=== PATIENT | male | born 1980 | race Hispanic/Latino ===

== ENCOUNTER 2018-04-04 19:57 | Emergency (ER) | payer SELFPAY ==
--- NOTE | 2018-04-04 21:37 | ER ---
Nurse's Notes [facility] Name: Ed Wei Age: 37 yrs Sex: Male : 1980 Arrival Date: 04/04/2018 Time: 20:00 Bed 12 Private MD: None, None Diagnosis: Tinea pedis;Cellulitis of left toe Presentation: 04/04 20:10 Presenting complaint: Patient states: that 3 days ago he noticed a wound at the base of fc his left third toe. Area is now swollen and painful. Transition of care: patient was not received from another setting of care. Onset of symptoms was April 01, 2018. Risk Assessment: Do you want to hurt yourself or someone else? Patient reports no desire to harm self or others. Initial Sepsis Screen: Does the patient meet any 2 criteria? No. Patient's initial sepsis screen is negative. Does the patient have a suspected source of infection? No. Patient's initial sepsis screen is negative. Care prior to arrival: Medication(s) given: Neosporin to wound. 20:10 Method Of Arrival: Ambulatory 20:10 Acuity: MIMI 4 Triage Assessment: 20:12 General: Appears uncomfortable, well groomed, Behavior is calm, cooperative, fc appropriate for age. Pain: Complains of pain in left foot Pain currently is 4 out of 10 on a pain scale. at worst was 8 out of 10 on a pain scale. Quality of pain is described as aching, throbbing, Pain began 2-3 days ago. Is continuous, Aggravated by increased activity, repositioning, weight bearing. EENT: No deficits noted. Neuro: Level of Consciousness is awake, alert, obeys commands, Oriented to person, place, time, situation. Cardiovascular: No deficits noted. Respiratory: No deficits noted. GI: No deficits noted. : No deficits noted. Derm: Skin is pink, warm \T\ dry. Reports wound at the base of left third tow. Musculoskeletal: Circulation, motion, and sensation intact. Capillary refill < 3 seconds, Range of motion: intact in all extremities. Historical: - Allergies: 20:12 No Known Allergies; fc - Home Meds: 20:12 None [Active]; fc - PMHx: 20:12 None; fc - PSHx: 20:12 None; fc - Immunization history:: Last tetanus immunization: unknown, Flu vaccine is not up to date. - Social history:: Smoking status: Patient/guardian denies using tobacco, Patient uses alcohol, occasionally. Patient/guardian denies using street drugs. - Ebola Screening: : Patient negative for fever greater than or equal to 101.5 degrees Fahrenheit, and additional compatible Ebola Virus Disease symptoms Patient denies exposure to infectious person Patient denies travel to an Ebola-affected area in the 21 days before illness onset. Screenin:14 Abuse screen: Denies threats or abuse. Nutritional screening: No deficits noted. fc Tuberculosis screening: No symptoms or risk factors identified. 20:34 Fall Risk None identified. bb Assessment: 20:34 General: Appears in no apparent distress. uncomfortable, Behavior is calm, cooperative. bb Pain: Complains of pain in left foot. Neuro: Level of Consciousness is awake, alert, obeys commands, Oriented to person, place, time, situation. Cardiovascular: No deficits noted. Respiratory: Airway is patent Respiratory effort is even, unlabored, Respiratory pattern is regular. GI: No deficits noted. No signs and/or symptoms were reported involving the gastrointestinal system. Derm: Wound noted left foot. Musculoskeletal: Circulation, motion, and sensation intact. Vital Signs: 20:13 BP 124 / 85; Pulse 71; Resp 18; Temp 98.3(O); Pulse Ox 100% on R/A; Weight 102.06 kg fc (R); Height 5 ft. 7 in. (170.18 cm) (R); Pain 4/10; 21:58 BP 134 / 72; Pulse 56; Resp 16 S; Temp 97.8(O); Pulse Ox 100% on R/A; bb 20:13 Body Mass Index 35.24 (102.06 kg, 170.18 cm) ED Course: 20:00 Patient arrived in ED. mr 20:01 None, None is Private Physician. mr 20:11 Triage completed. fc 20:13 Arm band placed on Patient placed in waiting room. fc 20:34 Myriam Quiros, CARLOS is Primary Nurse. bb 20:34 Patient has correct armband on for positive identification. Call light in reach. bb 21:01 [facility] snw 21:01 Karthik Loera MD is Attending Physician. snw 21:59 No provider procedures requiring assistance completed. Patient did not have IV access bb during this emergency room visit. Administered Medications: 21:40 Drug: DiFLUcan 200 mg Route: PO; bb 21:58 Follow up: Response: No adverse reaction bb 21:40 Drug: Clindamycin 300 mg Route: PO; bb 21:57 Follow up: Response: No adverse reaction bb Outcome: 21:36 Discharge ordered by . mateus 21:59 Discharged to home ambulatory. bb 21:59 Condition: stable 21:59 Discharge instructions given to patient, Instructed on discharge instructions, follow up and referral plans. medication usage, Demonstrated understanding of instructions, follow-up care, medications, Prescriptions given X 3. 21:59 Patient left the ED. bb Signatures: Xiomy Salcedo, JOSEPHINEC DIRECTOR TRADING-Sivan Kim Felicia, RN RN Myriam Mahajan RN RN bb Corrections: (The following items were deleted from the chart) 20:23 20:13 Arm band placed on Patient placed in an exam room, on a stretcher, alexis espinoza
--- NOTE | 2018-04-04 21:37 | EDPHYS ---
Physician Documentation [facility] Name: Ed Wei Age: 37 yrs Sex: Male : 1980 Arrival Date: 04/04/2018 Time: 20:00 Bed 12 Private MD: None, None ED Physician Karthik Loera HPI: 04/04 21:44 This 37 yrs old Male presents to ER via Ambulatory with complaints of Feet snw Swelling, Foot Pain. 21:44 The patient presents with a rash, swelling. The complaints affect the lateral aspect of snw left foot. Context: The problem was sustained at an unknown site, resulted from an unknown cause, the patient can fully bear weight, the patient is able to ambulate. Onset: The symptoms/episode began/occurred gradually, 1 week(s) ago, and became worse. Modifying factors: The symptoms are alleviated by nothing. Associated signs and symptoms: Pertinent positives: pruritis. Severity of symptoms: At their worst the symptoms were moderate. The patient has not experienced similar symptoms in the past. It is unknown whether or not the patient has recently seen a physician. pt states he works a lot in his boots. Historical: - Allergies: 20:12 No Known Allergies; fc - Home Meds: 20:12 None [Active]; fc - PMHx: 20:12 None; fc - PSHx: 20:12 None; fc - Immunization history:: Last tetanus immunization: unknown, Flu vaccine is not up to date. - Social history:: Smoking status: Patient/guardian denies using tobacco, Patient uses alcohol, occasionally. Patient/guardian denies using street drugs. - Ebola Screening: : Patient negative for fever greater than or equal to 101.5 degrees Fahrenheit, and additional compatible Ebola Virus Disease symptoms Patient denies exposure to infectious person Patient denies travel to an Ebola-affected area in the 21 days before illness onset. ROS: 21:43 Constitutional: Negative for fever, chills, and weight loss, Eyes: Negative for injury, snw pain, redness, and discharge, ENT: Negative for injury, pain, and discharge, Neck: Negative for injury, pain, and swelling, Cardiovascular: Negative for chest pain, palpitations, and edema, Respiratory: Negative for shortness of breath, cough, wheezing, and pleuritic chest pain, Abdomen/GI: Negative for abdominal pain, nausea, vomiting, diarrhea, and constipation, Back: Negative for injury and pain, : Negative for injury, bleeding, discharge, and swelling, Neuro: Negative for headache, weakness, numbness, tingling, and seizure. 21:43 MS/extremity: Positive for erythema, swelling, tenderness, of the left foot. 21:43 Skin: Positive for erythema, swelling, of the left third toe and left fourth toe. Exam: 21:42 Constitutional: This is a well developed, well nourished patient who is awake, alert, snw and in no acute distress. Head/Face: Normocephalic, atraumatic. Eyes: Pupils equal round and reactive to light, extra-ocular motions intact. Lids and lashes normal. Conjunctiva and sclera are non-icteric and not injected. Cornea within normal limits. Periorbital areas with no swelling, redness, or edema. ENT: Nares patent. No nasal discharge, no septal abnormalities noted. Tympanic membranes are normal and external auditory canals are clear. Oropharynx with no redness, swelling, or masses, exudates, or evidence of obstruction, uvula midline. Mucous membranes moist. Neck: Trachea midline, no thyromegaly or masses palpated, and no cervical lymphadenopathy. Supple, full range of motion without nuchal rigidity, or vertebral point tenderness. No Meningismus. Chest/axilla: Normal chest wall appearance and motion. Nontender with no deformity. No lesions are appreciated. Cardiovascular: Regular rate and rhythm with a normal S1 and S2. No gallops, murmurs, or rubs. Normal PMI, no JVD. No pulse deficits. Respiratory: Lungs have equal breath sounds bilaterally, clear to auscultation and percussion. No rales, rhonchi or wheezes noted. No increased work of breathing, no retractions or nasal flaring. Abdomen/GI: Soft, non-tender, with normal bowel sounds. No distension or tympany. No guarding or rebound. No evidence of tenderness throughout. Back: No spinal tenderness. No costovertebral tenderness. Full range of motion. Neuro: Awake and alert, GCS 15, oriented to person, place, time, and situation. Cranial nerves II-XII grossly intact. Motor strength 5/5 in all extremities. Sensory grossly intact. Cerebellar exam normal. Normal gait. Psych: Awake, alert, with orientation to person, place and time. Behavior, mood, and affect are within normal limits. 21:42 Skin: Appearance: normal except for affected area, lesion(s), located on the left foot, dry irritated, pruritic skin to plantar surface of lateral toes, + erythema and edema between left 3rd and 4th toes with oozing, erythema extending from area of tinea to dorsum of pt's toes . Vital Signs: 20:13 BP 124 / 85; Pulse 71; Resp 18; Temp 98.3(O); Pulse Ox 100% on R/A; Weight 102.06 kg fc (R); Height 5 ft. 7 in. (170.18 cm) (R); Pain 4/10; 21:58 BP 134 / 72; Pulse 56; Resp 16 S; Temp 97.8(O); Pulse Ox 100% on R/A; bb 20:13 Body Mass Index 35.24 (102.06 kg, 170.18 cm) fc MDM: 21:09 Patient medically screened. [facility] 21:44 Data reviewed: vital signs, nurses notes. Data interpreted: Pulse oximetry: on room air snw is 100 %. Interpretation: normal. Counseling: I had a detailed discussion with the patient and/or guardian regarding: the historical points, exam findings, and any diagnostic results supporting the discharge/admit diagnosis, the presence of at least one elevated blood pressure reading (>120/80) during this emergency department visit, the need for outpatient follow up, to return to the emergency department if symptoms worsen or persist or if there are any questions or concerns that arise at home. Special discussion: I have referred the patient to see his PCP for further evaluation of high blood pressure. Based on the history and exam findings, there is no indication for further emergent testing or inpatient evaluation. Administered Medications: 21:40 Drug: DiFLUcan 200 mg Route: PO; bb 21:58 Follow up: Response: No adverse reaction bb 21:40 Drug: Clindamycin 300 mg Route: PO; bb 21:57 Follow up: Response: No adverse reaction bb Disposition: 04/05 07:08 Co-signature as Attending Physician, Karthik Loera MD I agree with the assessment and yojana plan of care. Disposition: 04/04/18 21:36 Discharged to Home. Impression: Tinea pedis, Cellulitis of left toe. - Condition is Stable. - Discharge Instructions: Athlete's Foot, Cellulitis, Adult. - Prescriptions for Hibiclens - wash 1 application by TOPICAL route 2 times per day for 10 days; 1 bottle. Clindamycin HCl 300 mg Oral Capsule - take 1 capsule by ORAL route every 6 hours for 10 days; 40 capsule. Diclofenac Sodium 75 mg Oral Tablet Sustained Release - take 1 tablet by ORAL route 2 times per day; 30 tablet. - Work release form, Medication Reconciliation Form, Thank You Letter, Antibiotic Education, Prescription Opioid Use form. - Follow up: Emergency Department; When: As needed; Reason: Worsening of condition. Follow up: Private Physician; When: 1 - 2 days; Reason: Recheck today's complaints, Continuance of care, Re-evaluation by your physician. Signatures: Karthik Loera MD MD cha Therrien, Shelly, SIMRAN-C HARDBOARD SUPERVISOR-Csnw Bozena iMchel RN RN Myriam Mahajan RN RN bb Corrections: (The following items were deleted from the chart) 04/04 21:59 21:36 04/04/2018 21:36 Discharged to Home. Impression: Tinea pedis; Cellulitis of left bb toe. Condition is Stable. Forms are Medication Reconciliation Form, Thank You Letter, Antibiotic Education, Prescription Opioid Use. Follow up: Emergency Department; When: As needed; Reason: Worsening of condition. Follow up: Private Physician; When: 1 - 2 days; Reason: Recheck today's complaints, Continuance of care, Re-evaluation by your physician. snw
[2018-04-04] MEDS ORDERED: CLINDAMYCIN HCL 150 MG CAP ONE (21:49)
[2018-04-04] MEDS ORDERED: FLUCONAZOLE 100 MG TAB ONE (21:49)
== END 2018-04-04 21:59 | disposition home or self-care (01) ==
LOC: ER 19:57
DX: B35.3 Tinea pedis (principal); L03.032 Cellulitis of left toe
CPT/HCPCS: 99283